=== PATIENT | female | born 2000 | race Caucasian/White ===

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

== ENCOUNTER 2018-12-06 20:30 | Emergency (ER) | payer MEDICAID ==
[2018-12-06 20:52] LABS: URINE PH (Dip) POC 5.5 (5.0-8.5)
[2018-12-06 20:52] LABS: URINE BLOOD (Dip) POC Negative (NEGATIVE); URINE GLUCOSE (Dip) POC Negative (NEGATIVE); URINE KETONES (Dip) POC Negative (NEGATIVE); URINE LEUKOCYTE EST (Dip) POC Trace (NEGATIVE); URINE NITRITE (Dip) POC Negative (NEGATIVE); URINE TOTAL PROTEIN POC Negative (NEGATIVE)
[2018-12-06] MEDS: ONDANSETRON 4 MG INJ IV (21:42)
[2018-12-06] MEDS: SOD CHLORIDE 0.9% 1,000 ML IV (21:42)
[2018-12-06 21:43] LABS: ADD MAN DIFF? NO
[2018-12-06] MEDS: KETOROLAC 15 MG INJ IV (21:43)
[2018-12-06 21:45] LABS: BASOPHIL # 0.1 10^3/ul (0.0-0.1); BASOPHILS % 0.6 % (0.0-2.0); EOSINOPHILS # 0.3 10^3/ul (0.0-0.5); EOSINOPHILS % 3.2 % (0.0-7.0); HEMATOCRIT 38.4 % (37.0-47.0); HEMOGLOBIN 12.7 g/dl (12.0-16.0); LYMPHOCYTES # 2.5 10^3/ul (0.8-2.9); LYMPHOCYTES % 28.6 % (18.0-55.0); MEAN CORPUSCULAR HEMOGLOBIN 30.1 pg (29.0-33.0); MEAN CORPUSCULAR HGB CONC 33.1 g/dl (32.0-37.0); MEAN PLATELET VOLUME 9.4 fl (7.4-10.4); MONOCYTE # 0.6 10^3/ul (0.3-0.9); MONOCYTES % 7.2 % (0.0-13.0); NEUTROPHIL # 5.2 10^3/ul (1.6-7.5); NEUTROPHILS % 59.9 % (30.0-74.0); PLATELET COUNT 350 10^3/UL (140-415); RED BLOOD COUNT 4.22 10^6/ul (4.20-5.40); RED CELL DISTRIBUTION WIDTH 12.1 % (11.5-14.5)
[2018-12-06 21:45] LABS: WHITE BLOOD COUNT 8.7 10^3/ul (4.8-10.8)
[2018-12-06 21:52] LABS: ADD UMIC YES; UR ASCORBIC ACID 20 mg/dL (NEGATIVE); UR BACTERIA FEW /HPF (NONE SEEN); UR BILIRUBIN (Dip) NEGATIVE (NEGATIVE); UR BLOOD (Dip) NEGATIVE (NEGATIVE); UR CLARITY CLOUDY (CLEAR); UR COLOR YELLOW (YELLOW); UR GLUCOSE (Dip) NEGATIVE (NEGATIVE); UR KETONES (Dip) TRACE mg/dL (NEGATIVE); UR LEUKOCYTE ESTERASE (Dip) TRACE Leu/ul (NEGATIVE); UR MUCUS FEW /HPF (NONE SEEN); UR NITRITE (Dip) NEGATIVE (NEGATIVE); UR RBC 6 /HPF (0-5); UR SPECIFIC GRAVITY (Dip) 1.023 (1.003-1.030); UR SQUAMOUS EPITHELIAL CELL FEW /HPF (FEW); UR TOTAL PROTEIN (Dip) NEGATIVE (NEGATIVE); UR UROBILINOGEN (Dip) 1+ mg/dL (NEGATIVE); UR WBC 6 /HPF (0-5)
[2018-12-06 22:02] LABS: ALANINE AMINOTRANSFERASE 25 IU/L (13-69); ALBUMIN 4.5 g/dl (3.3-4.9); ALBUMIN/GLOBULIN RATIO 1.32; ALKALINE PHOSPHATASE 75 IU/L (42-121); ANION GAP 10 (5-13); ASPARTATE AMINO TRANSFERASE 26 IU/L (15-46); BILIRUBIN,INDIRECT 0.3 mg/dl (0-1.1); BILIRUBIN,TOTAL 0.3 mg/dl (0.2-1.3); BLOOD UREA NITROGEN 7 mg/dl (7-20); CALCIUM 9.2 mg/dl (8.4-10.2); CARBON DIOXIDE 26 mmol/L (21-31); CHLORIDE 107 mmol/L (97-110); CREATININE 0.58 mg/dl (0.44-1.00); Estimated GFR > 60 mL/min (>60); GLUCOSE 90 mg/dl (70-220); LIPASE 64 U/L (23-300); POTASSIUM 3.8 mmol/L (3.5-5.1); SODIUM 143 mmol/L (135-144); TOTAL PROTEIN 7.9 g/dl (6.1-8.1)
[2018-12-06 22:05] LABS: INR 0.89; PARTIAL THROMBOPLASTIN TIME 30.1 Sec (23.0-35.0); PROTIME 12.2 Sec (11.9-14.9)
[2018-12-06] MEDS ORDERED: IOHEXOL 300MG/ML 150 ML BTL (22:29)
[2018-12-06] MEDS ORDERED: SOD CHLORIDE 0.9% 100 ML (22:29)
== END 2018-12-06 23:53 | disposition home or self-care (01) ==
LOC: FTE 20:30
DX: R10.31 Right lower quadrant pain (principal); K59.00 Constipation, unspecified; R11.2 Nausea with vomiting, unspecified
CPT/HCPCS: 36415; 74177; 80053; 81001; 81003; 81025; 83690; 85025; 85610; 85730; 96361; 96374; 96375; 99285-25

== ENCOUNTER 2019-02-05 08:31 | Emergency (ER) | payer MEDICAID ==
[2019-02-05 09:23] LABS: ADD MAN DIFF? NO
[2019-02-05 09:24] LABS: BASOPHIL # 0.1 10^3/ul (0.0-0.1); BASOPHILS % 0.8 % (0.0-2.0); EOSINOPHILS # 0.2 10^3/ul (0.0-0.5); EOSINOPHILS % 2.9 % (0.0-7.0); HEMATOCRIT 43.7 % (37.0-47.0); HEMOGLOBIN 14.2 g/dl (12.0-16.0); LYMPHOCYTES # 2.1 10^3/ul (0.8-2.9); LYMPHOCYTES % 28.3 % (18.0-55.0); MEAN CORPUSCULAR HGB CONC 32.5 g/dl (32.0-37.0); MEAN CORPUSCULAR VOLUME 92.2 fl (72.0-104.0); MEAN PLATELET VOLUME 9.6 fl (7.4-10.4); MONOCYTE # 0.4 10^3/ul (0.3-0.9); MONOCYTES % 5.7 % (0.0-13.0); NEUTROPHIL # 4.7 10^3/ul (1.6-7.5); NEUTROPHILS % 61.8 % (30.0-74.0); PLATELET COUNT 383 10^3/UL (140-415); RED BLOOD COUNT 4.74 10^6/ul (4.20-5.40); RED CELL DISTRIBUTION WIDTH 11.9 % (11.5-14.5)
[2019-02-05 09:24] LABS: WHITE BLOOD COUNT 7.6 10^3/ul (4.8-10.8)
[2019-02-05 09:37] LABS: ADD UMIC YES; UR ASCORBIC ACID NEGATIVE (NEGATIVE); UR BACTERIA FEW /HPF (NONE SEEN); UR BILIRUBIN (Dip) NEGATIVE (NEGATIVE); UR BLOOD (Dip) NEGATIVE (NEGATIVE); UR CLARITY CLOUDY (CLEAR); UR COLOR YELLOW (YELLOW); UR GLUCOSE (Dip) NEGATIVE (NEGATIVE); UR KETONES (Dip) NEGATIVE (NEGATIVE); UR LEUKOCYTE ESTERASE (Dip) 1+ Leu/ul (NEGATIVE); UR MUCUS FEW /HPF (NONE SEEN); UR NITRITE (Dip) NEGATIVE (NEGATIVE); UR RBC 3 /HPF (0-5); UR SPECIFIC GRAVITY (Dip) 1.018 (1.003-1.030); UR SQUAMOUS EPITHELIAL CELL MANY /HPF (FEW); UR TOTAL PROTEIN (Dip) NEGATIVE (NEGATIVE); UR UROBILINOGEN (Dip) NEGATIVE (NEGATIVE); UR WBC 22 /HPF (0-5)
[2019-02-05 09:45] LABS: ALANINE AMINOTRANSFERASE 54 IU/L (13-69); ALBUMIN 4.3 g/dl (3.3-4.9); ALBUMIN/GLOBULIN RATIO 1.13; ALKALINE PHOSPHATASE 83 IU/L (42-121); ANION GAP 7 (5-13); ASPARTATE AMINO TRANSFERASE 44 IU/L (15-46); BILIRUBIN,INDIRECT 0.4 mg/dl (0-1.1); BILIRUBIN,TOTAL 0.4 mg/dl (0.2-1.3); BLOOD UREA NITROGEN 7 mg/dl (7-20); CALCIUM 9.6 mg/dl (8.4-10.2); CARBON DIOXIDE 28 mmol/L (21-31); CHLORIDE 105 mmol/L (97-110); CREATININE 0.58 mg/dl (0.44-1.00); Estimated GFR > 60 mL/min (>60); GLUCOSE 106 mg/dl (70-220); LIPASE 62 U/L (23-300); POTASSIUM 4.7 mmol/L (3.5-5.1); SODIUM 140 mmol/L (135-144); TOTAL PROTEIN 8.1 g/dl (6.1-8.1)
[2019-02-05] MEDS: SOD CHLORIDE 0.9% 1,000 ML IV (09:55)
[2019-02-05] MEDS: ONDANSETRON 4 MG INJ IV (09:56)
[2019-02-05] MEDS: KETOROLAC 30 MG INJ IV (09:56)
[2019-02-05] MEDS: IOHEXOL 300MG/ML 150 ML BTL (10:12)
[2019-02-05] MEDS: SOD CHLORIDE 0.9% 100 ML (10:12)
== END 2019-02-05 11:04 | disposition home or self-care (01) ==
LOC: FTE 08:31
DX: N39.0 Urinary tract infection, site not specified (principal); R10.2 Pelvic and perineal pain
CPT/HCPCS: 36415; 74177; 76830; 76856; 80053; 81001; 81025; 83690; 85025; 96361; 96374; 96375; 99285-25